=== PATIENT | male | born 1950 | race Hispanic/Latino ===

== ENCOUNTER → 2024-03-19 | Outpatient (CLI) | payer OTHER ==
[~2024-03-19] MED LIST: ASPI-1197 PO; BUSP5TAB3 PO; CITA-107 PO; IBUP-2077 PO; IOHEXOL 350 MG/ML 100ML INFUS..BTL IV ONE; OMEP20CA12 PO; SIMV-43 PO
--- NOTE | 2024-03-19 10:25 | HMCIMG ---
CT ABDOMEN W/WO 3 PHASE REASON: ABN LIVER /BILIARY COMPARISON: None. TECHNIQUE: Images are obtained from lung bases to the iliac crests before, during and after IV contrast. Arterial and venous phase imaging was performed to followed by 7 minute renal delay. Contrast volume was 100 cc Omnipaque [id number]. FINDINGS: Lung bases are clear. There has been resection of the right lower liver as well as the medial segment left lobe of the liver. Lateral segment of the left lobe of the liver remains. Caudate lobe remains present as well. There are multiple surgical clips along the resection line. There is a focal low-attenuation lesion measuring 3.9 x 2.7 cm, present along the surgical resection margin. There are surgical clips between this and the remaining hepatic parenchyma. Arterial phase imaging shows some peripheral enhancement, venous phase imaging shows more pronounced nodular peripheral enhancement, renal delay images show near complete filling in of this lesion with contrast. The enhancement pattern is consistent with hemangioma. Comparison with previous studies would be helpful for comparison. Liver ultrasound may be helpful as well, to evaluate this lesion, and potentially demonstrate normal echogenic appearance of a hemangioma. There are no nodules in the remaining liver parenchyma. Intrahepatic biliary tree is not distended. Portal vein is patent as is the inferior vena cava. There are normal-appearing kidneys.. Spleen and pancreas appear unremarkable. The gallbladder appears normal as well. Bowel loops appear unremarkable. There is no evidence of bowel obstruction. There is no evidence of free fluid or intraperitoneal air. There are no focal fluid collections. There are atherosclerotic changes in aorta without evidence of aneurysm or stenosis. Aorta and retroperitoneum appear otherwise normal. Anterior abdominal wall is intact. Osseous structures appear unremarkable. IMPRESSION: 1. Liver findings consistent with the history of hepatic resection, the caudate lobe and the lateral segment of the left lobe of the liver are remaining. 2. There is a 2.7 x 3.9 cm mass along the resection line, adjacent to to the remaining liver, etiology uncertain, the enhancement pattern is typical of hemangioma 3. No other focal nodules, the superior vena cava and hepatic veins appear patent, the exam is otherwise unremarkable. CT was performed with one or more following dose reduction techniques: automated exposure control, adjustment of the mA and kv according to patient's size, or use of a iterative reconstruction technique.
== END | disposition home or self-care (01) ==
LOC: RAH 08:52
PROVIDERS: ATTEND Internal Medicine
DX: R16.0 Hepatomegaly, not elsewhere classified (principal); I70.0 Atherosclerosis of aorta; K76.9 Liver disease, unspecified; R93.2 Abnormal findings on diagnostic imaging of liver and biliary tract
CPT/HCPCS: 74170; Q9967